=== PATIENT | female | born 1975 | race African-American/Black ===

== ENCOUNTER 2017-11-14 13:35 | Emergency (ER) | payer SELFPAY ==
[~2017-11-14] VITALS: Ht 167.6 cm; Wt 90.0 kg
[2017-11-14] MEDS ORDERED: ONDANSETRON 4MG ODT PO ONE (14:15)
[2017-11-14] MEDS ORDERED: ONDANSETRON HCL 4MG/2ML VIAL IV ONE (15:30)
[2017-11-14] MEDS ORDERED: SODIUM CHLORIDE 0.9% 1,000 ML IV ONE (15:30)
[2017-11-14] MEDS ORDERED: MORPHINE SULFATE 4 MG/ML CPJ (NOT FOR IM USE) IV ONE (15:30)
[2017-11-14] MEDS ORDERED: FAMOTIDINE 20MG/2ML VIAL IV ONE (15:30)
[2017-11-14 15:37] LABS: CHLORIDE 101 mEq/L (98-107)
[2017-11-14 15:40] LABS: HEMATOCRIT 42.8 % (36.0-48.0); HEMOGLOBIN 14.3 g/dL (12.0-16.0); MEAN CORPUSCULAR HEMOGLOBIN 26.8 pg (28.0-32.0); MEAN CORPUSCULAR VOLUME 80.4 fL (81.0-99.0); PLATELET 314 x1000/uL (130-400); RED BLOOD CELL COUNT 5.32 mill/uL (4.2-5.4); RED CELL DISTRIBUTION WIDTH 13.6 % (11.6-14.6)
[2017-11-14 16:45] VITALS: BP 117/66
== END 2017-11-14 16:45 | disposition home or self-care (01) ==
LOC: ER 14:04
DX: K52.9 Noninfective gastroenteritis and colitis, unspecified (principal); E87.6 Hypokalemia; G89.29 Other chronic pain; F12.10 Cannabis abuse, uncomplicated; Z90.49 Acquired absence of other specified parts of digestive tract
CPT/HCPCS: 36415; 80053; 85027; 96361; 96374; 96375; 99284; J2270; J2405; J3490; J7030; Z7610